=== PATIENT | female | born 2000 | race Caucasian/White ===

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

== ENCOUNTER 2022-01-18 13:57 | Emergency (ER) | payer OTHER, SELFPAY ==
[2022-01-18 14:15] VITALS: BP 157/101; PULSE 90; RESP 16; TEMP 36.2; O2SAT 100
--- NOTE | 2022-01-18 15:22 | ED.HA ---
HPI - Headache General Chief Complaint: Headache Stated Complaint: high blood pressure Time Seen by Provider: 01/18/22 15:15 History of Present Illness HPI Narrative: 21-year-old female who presents to [facility] with complaints of headache to the left posterior area of her head around to the front of head for the past 4 days. Patient reports history of hypertension during and even was induced early due to her blood pressure, is 3 months old. Patient states that she has never been on blood pressure medication.Patient denies any visual disturbance, no numbness or tingling to face or any extremity, denies any nausea or vomiting. Patient reports that she has taken Ibuprofen for her headache with no relief.Patient is on control pill daily with menses currently. MD elicited complaint: headache Pertinent past history: other (hypertension during ) Onset (ago): day(s) (4) Pain scale (0-10): 4 Treatments prior to arrival: ibuprofen Related Data Home Medications Medication Instructions Recorded Confirmed desogestrel 0.15 mg-ethinyl 1 tablet PO DAILY 01/18/22 01/18/22 estradiol 0.03 mg tablet (Isibloom) Allergies Allergy/AdvReac Type Severity Reaction Status Date / Time No Known Allergies Allergy Verified 01/18/22 14:34 Review of Systems Review of Systems: CONSTITUTIONAL: Denies fever, chills, or sweats. EYES: Denies visual changes, redness, or discharge. ENT: Positive rhinorrhea, congestion,no sore throat, or otalgia. CARDIOVASCULAR: Denies chest pain, palpitations, or edema. RESPIRATORY: Denies cough or dyspnea. GASTROINTESTINAL: Denies abdominal pain, nausea, vomiting, or diarrhea. GENITOURINARY: Denies dysuria or hematuria. SKIN: Denies rash or itching. MUSCULOSKELETAL: Denies back pain, joint pain, or myalgia. NEUROLOGIC: Positive headache,denies numbness, or weakness. PSYCHIATRIC: Positive for history of anxiety or depression. [facility] Past Medical History Medical History (Updated 01/20/22 @ 09:54 by Caterina Bill NP) Anxiety and depression Asthma Fracture of right clavicle GERD (gastroesophageal reflux disease) Hypertension during Surgical History Surgical History (Updated 01/20/22 @ 09:56 by Caterina Bill NP) No history of previous surgery Social History Social History (Updated 01/20/22 @ 09:51 by Caterina Bill NP) Smoking status: Never smoker Alcohol intake: never Substance use: never Living arrangements: with family Gender identity (if verbalized by the patient): Female Comments At time of signature, agree with nursing past medical, surgical, social and family history. There is no relevant family history pertinent to the presenting complaint Exam Narrative: GENERAL: Well-appearing, well-nourished,obesity, and in no acute distress. HEAD: Normocephalic, atraumatic. EYES: PERRLA and EOMI. ENT: Nares mildly red with clear rhinorrhea no epistaxis. Mucous membranes moist.TM's normal, throat pink with no lesions or exudates,no tonsil swelling NECK: Supple.no lymphadenopathy CHEST: Clear to auscultation. No respiratory distress.SAO2 100% on room air HEART: Regular rate and rhythm. No murmur heard. Normal peripheral pulses. ABDOMEN: Soft, nontender, nondistended, normal active bowel sounds. EXTREMITIES: Normal range of motion. No edema. SKIN: Warm, dry, no rash. NEURO: No focal deficits. Alert and oriented x3.cranial nerves intact with no deficit, gait steady Course Course Level of Care: Express Care Visit Vital Signs Vital signs: Vital Signs Temperature 36.2 C L 01/18/22 14:15 Pulse Rate 90 01/18/22 14:15 Respiratory Rate 16 01/18/22 14:15 Blood Pressure 157/101 H 01/18/22 14:15 Pulse Oximetry 100 01/18/22 14:15 Oxygen Delivery Room Air 01/18/22 14:15 Temperature 36.2 C L 01/18/22 14:15 Pulse Rate 90 01/18/22 14:15 Respiratory Rate 16 01/18/22 14:15 Blood Pressure 172/102 H 01/18/22 15:35 Pulse Ox
[2022-01-18 15:35] VITALS: BP 172/102
== END 2022-01-18 15:35 | disposition home or self-care (01) ==
PROVIDERS: Emergency Provider Registered Nurse; PCP Physician Assistant
DX: R51.9 Headache, unspecified (principal); J06.9 Acute upper respiratory infection, unspecified; R03.0 Elevated blood-pressure reading, without diagnosis of hypertension; J45.909 Unspecified asthma, uncomplicated; K21.9 Gastro-esophageal reflux disease without esophagitis
CPT/HCPCS: 99211; G0463

== ENCOUNTER 2022-05-19 14:11 | Emergency (ER) | payer OTHER, SELFPAY ==
[2022-05-19 14:20] VITALS: BP 151/93; PULSE 82; RESP 16; TEMP 36.5; O2SAT 98
--- NOTE | 2022-05-19 15:18 | ED.GENADULT ---
HPI - General Adult General Chief complaint: Upper Respiratory Infection Stated complaint: Sore Throat Source: patient Mode of arrival: ambulatory Limitations: no limitations History of Present Illness HPI narrative: Patient presents for evaluation of sore throat for the last two days. She states she now has right-sided otalgia. Denies any fever, chills, nausea, vomiting, respiratory symptoms, tinnitus, drainage from the ears, hearing loss. No recent sick contacts to her knowledge. She has had COVID in the past. She does not smoke. She has not tried any therapies to assist with her symptoms. No additional complaints or concerns. Related Data Home Medications Medication Instructions Recorded Confirmed desogestrel 0.15 mg-ethinyl 1 tablet PO DAILY 01/18/22 05/19/22 estradiol 0.03 mg tablet (Isibloom) escitalopram oxalate 10 mg tablet 10 mg DIRECTED 05/19/22 05/19/22 Allergies Allergy/AdvReac Type Severity Reaction Status Date / Time No Known Allergies Allergy Verified 01/18/22 14:34 Review of Systems Review of Systems: CONSTITUTIONAL: Denies fever, chills, or sweats. EYES: Denies visual changes, redness, or discharge. ENT:Reports right sided ear pain and sore throat. Denies tinnitus, hearing loss or drainage from the ear. CARDIOVASCULAR: Denies chest pain, palpitations, or edema. RESPIRATORY: Denies cough or dyspnea. GASTROINTESTINAL: Denies abdominal pain, nausea, vomiting, or diarrhea. GENITOURINARY: Denies dysuria or hematuria. SKIN: Denies rash or itching. MUSCULOSKELETAL: Denies back pain, joint pain, or myalgia. NEUROLOGIC: Denies headache, numbness, dizziness, or weakness. PSYCHIATRIC: Denies anxiety or depression. [facility] Past Medical History Medical History Anxiety and depression Asthma Fracture of right clavicle GERD (gastroesophageal reflux disease) Hypertension during Surgical History Surgical History No history of previous surgery Family History Family History Mother No pertinent past medical history Social History Social History (Reviewed 05/19/22 @ 15:24 by Chris Nickerson, [facility], [place] Smoking status: Never smoker Alcohol intake: never Substance use: never Living arrangements: alone Gender identity (if verbalized by the patient): Female Exam Narrative: GENERAL: Well-appearing, well-nourished, and in no acute distress. HEAD: Normocephalic, atraumatic. EYES: PERRLA and EOMI. ENT: Nares clear, no rhinorrhea or epistaxis. Mucous membranes moist. Bilateral tonsillar enlargement and erythema without exudate. Uvula is midline. Bilateral TMs pearly becker nonbulging NECK: Supple. No adenopathy or masses. No carotid bruits or JVD CHEST: Clear to auscultation. No respiratory distress. No wheezes rales or rhonchi HEART: Regular rate and rhythm. No murmur heard. Normal peripheral pulses. ABDOMEN: Soft, nontender, nondistended, normal active bowel sounds. EXTREMITIES: Normal range of motion. No edema. SKIN: Warm, dry, no rash. NEURO: No focal deficits. Alert and oriented x3. PSYCH: Normal mood and affect. Course Course Emergency Course: This is a 22-year-old female who presented for evaluation of sore throat. She has bilateral tonsillar swelling and erythema without exudate. Discussed watchful waiting vs initiating abx. She would like to move forward with therapy. Will dc with amoxicillin. Increase hydration. Follow up with primary care. Go to ER for difficulty breathing or swallowing. Pt in agreement with plan of care Level of Care: Express Care Visit Vital Signs Vital signs: Vital Signs Temperature 36.5 C 05/19/22 14:20 Pulse Rate 82 05/19/22 14:20 Respiratory Rate 16 05/19/22 14:20 Blood Pressure 151/93 H 05/19/22 14:20 Pulse Oximetry 98 05/19/22 14:20 O
== END 2022-05-19 15:22 | disposition home or self-care (01) ==
PROVIDERS: Emergency Provider Nurse Practitioner; PCP Physician Assistant
DX: J03.90 Acute tonsillitis, unspecified (principal); J45.909 Unspecified asthma, uncomplicated; K21.9 Gastro-esophageal reflux disease without esophagitis; F41.9 Anxiety disorder, unspecified; F32.A Depression, unspecified
CPT/HCPCS: 87081; 87880; 99213; G0463

== ENCOUNTER 2023-02-05 15:53 | Emergency (ER) | payer OTHER, SELFPAY ==
--- NOTE | 2023-02-05 16:03 | ED.CHESTPAIN ---
HPI - Chest Pain General Chief Complaint: Chest Pain Stated Complaint: Chest Pain Source: patient and RN notes reviewed History of Present Illness HPI narrative: 22 yo F presents to urgent care with complaints of left upper chest pain that radiates down her left arm. Pt states this has been going on for the last 3 hours and started while at work where she is a [employer]. Pt reports some anxiety which she has a hx of but states she has never had pain like this before with her anxiety. Pt reports nausea on the way here which has resolved. Pt denies any numbness, tingling, vomiting, SOB, dizziness, painful breathing, or recent strenuous activity. Pt states her father was dx with heart failure at the age of 3030 years old and has heart attacks in the past. Pt does report a cough recently. Related Data Home Medications Medication Instructions Recorded Confirmed desogestrel 0.15 mg-ethinyl 1 tablet PO DAILY 01/18/22 02/05/23 estradiol 0.03 mg tablet (Isibloom) escitalopram oxalate 10 mg tablet 10 mg DIRECTED 05/19/22 02/05/23 famotidine 20 mg tablet 20 mg PO BID 02/05/23 02/05/23 Allergies Allergy/AdvReac Type Severity Reaction Status Date / Time No Known Allergies Allergy Verified 02/05/23 16:06 Review of Systems Review of Systems: Pertinent positives and pertinent negatives per HPI. [facility] Past Medical History Medical History Anxiety and depression Asthma Fracture of right clavicle GERD (gastroesophageal reflux disease) Hypertension during Surgical History Surgical History No history of previous surgery Family History Family History Mother No pertinent past medical history Social History Social History Smoking status: Never smoker Alcohol intake: never Substance use: never Living arrangements: alone Gender identity (if verbalized by the patient): Female Comments At the time of my signature, I reviewed and agree with the nursing past medical, surgical, social, and family history. There is no relevant family history pertinent to the patient complaint. Exam Narrative: GENERAL: This is a well-nourished, well-developed patient, in no apparent distress. HEAD: normocephalic, atraumatic. EYES: Sclera clear/white. Vision is grossly intact. EARS: External ears normal, auditory canals clear and without drainage. Hearing grossly intact. NOSE: External nose normal with no obvious nasal discharge, nares without redness, no rhinorrhea. THROAT: Mucous membranes moist, posterior pharynx clear. NECK: Neck supple, non-tender without lymphadenopathy, masses or thyromegaly. CARDIOVASCULAR: Regular rate and rhythm without murmurs, gallops, or rubs. RESPIRATORY: Clear to auscultation. Breath sounds equal bilaterally. No wheezes, rales, or rhonchi. SKIN: warm, intact with no suspicious lesions or rash, good texture and turgor. NEURO: awake, alert, and oriented to person, place and time. There were no obvious focal neurologic abnormalities. BACK: Nontender without deformity or crepitus. No flank tenderness. Course Course Level of Care: Express Care Visit Vital Signs Vital signs: Vital Signs Temperature 98.6 F 02/05/23 16:04 Pulse Rate 87 02/05/23 16:04 Respiratory Rate 18 02/05/23 16:04 Blood Pressure 170/87 H 02/05/23 16:04 Pulse Oximetry 99 02/05/23 16:04 Oxygen Delivery Room Air 02/05/23 16:04 Temperature 98.6 F 02/05/23 16:04 Pulse Rate 87 02/05/23 16:04 Respiratory Rate 18 02/05/23 16:04 Blood Pressure 170/87 H 02/05/23 16:04 Pulse Oximetry 99 02/05/23 16:04 Oxygen Delivery Room Air 02/05/23 16:04 reviewed MDM - Chest Pain MDM Narrative Medical decision making narrative: Discussed reasons with pt, it i
[2023-02-05 16:04] VITALS: BP 170/87; PULSE 87; RESP 18; TEMP 37; O2SAT 99
--- NOTE | 2023-02-05 16:23 | ECG_ITS ---
Measurements Intervals [place] Rate: 79 P: 52 FL: 144 QRS: 77 QRSD: 98 T: 30 QT: 374 QTc: 430 Interpretive Statements SINUS RHYTHM BASELINE ARTIFACT- I, II, III, AVR, AVL, AVF NORMAL ECG COMPARED TO ECG 12/31/2020 12:00:34 NO SIGNIFICANT CHANGES Electronically Signed On 02-06-2023 7:20:54 CDT by Celso Mccarthy D.O.
== END 2023-02-05 16:33 | disposition short-term general hospital (02) ==
PROVIDERS: Emergency Provider Nurse Practitioner Family; PCP Physician Assistant
DX: R07.9 Chest pain, unspecified (principal); J45.909 Unspecified asthma, uncomplicated
CPT/HCPCS: 93005; 99213; G0463